=== PATIENT | female | born 1980 | race Caucasian/White ===

== ENCOUNTER 2016-10-06 17:14 | Inpatient (IN) | payer BC ==
[2016-10-06 18:12] LABS: ROM Internal QC QC Line Present
[2016-10-06] MEDS ORDERED: ceFOXitin 2 GM IVPREMIX* 2 GM/50 ML BAG IVPB ONE (18:57)
[2016-10-06] MEDS ORDERED: Sodium Citrate/Citric Acid* 15 ML UDC PO ONE (18:57)
[2016-10-06 19:38] LABS: Hematocrit 36 % (35-47); Hemoglobin 12.4 g/dl (12.0-16.0); Mean Corpuscular HGB Conc 34 g/dl (31-36); Mean Corpuscular Hemoglobin 29 pg (27-31); Mean Corpuscular Volume 84 fL (80-97); Mean Platelet Volume 8 um3 (7.4-10.4); Red Blood Count 4.32 10^6/ul (4.0-5.4); Red Cell Distribution Width 13 % (10.5-15)
[2016-10-06] MEDS ORDERED: Morphine PF AMP (0.5MG/ML)* 5 MG/10 ML AMP ONE (19:42)
[2016-10-06] MEDS ORDERED: Ondansetron INJ* 2 MG/ML VIAL ONE (19:46)
[2016-10-06] MEDS ORDERED: Ketorolac INJ* 30 MG/ML 1 ML VIAL ONE (19:46)
[2016-10-06] MEDS ORDERED: OXYTOCIN* 10 UNITS/ML 1 ML VIAL ONE (19:46)
[2016-10-06] MEDS ORDERED: Phenylephrine IV* 40 MCG/ML 10 ML SYRINGE ONE (20:43)
[2016-10-06] MEDS ORDERED: HYDROmorphone* 1 MG/ML 1 ML SYR IV PRN (21:21)
[2016-10-06] MEDS ORDERED: DiMENhydriNATE IV* 50 MG/ML VIAL IV PUSH PRN (21:21)
[2016-10-06] MEDS ORDERED: Acetaminophen IV 1GM/100ML * 100 ML IVPB ONE (21:21)
[2016-10-06] MEDS: oxyCODONE/Acetamin 5/325 MG* TAB PO PRN ×2 (22:02→22:25)
[2016-10-07] MEDS: Ibuprofen TAB* 600 MG PO SCH ×4 (00:13→17:15)
[2016-10-07] MEDS: oxyCODONE/Acetamin 5/325 MG* TAB PO PRN ×7 (02:33→23:29)
[2016-10-07] MEDS ORDERED: Dibucaine 1% 28.35 GM TUBE PR PRN (02:46)
[2016-10-07] MEDS ORDERED: Glycerin ADULT SUPP PR PRN (02:46)
[2016-10-07] MEDS ORDERED: Witch Hazel PAD* JAR TOPICAL PRN (02:46)
[2016-10-07] MEDS ORDERED: Acetaminophen TAB* 325 MG PO PRN (02:46)
[2016-10-07] MEDS ORDERED: Oxytocin in LR* 20 UNITS/1,000 ML BAG IVPB SCH (03:00)
[2016-10-07] MEDS ORDERED: RHO D Immune Globulin (HUMAN)* 300 MCG = 1,500 I.U. INJ IM ONE (09:59)
[2016-10-07] MEDS: Docusate CAP* 100 MG PO SCH ×3 (10:03→21:09)
[2016-10-07] MEDS: Simethicone CHEW TAB* 80 MG PO SCH ×4 (10:03→21:09)
--- NOTE | 2016-10-07 18:01 | OP ---
DATE OF OPERATION: 10/06/16 - ROOM #[id number] DATE OF : 82 SURGEON: Francine Moreno MD ASSISTANTS: Dr. Yu; Elicia Tamayo CNM ANESTHESIOLOGIST: Dr. Mclain. ANESTHESIA: Spinal. PRE-OP DIAGNOSES: Full-term intrauterine , breech presentation, spontaneous rupture of membranes, labor. POST-OP DIAGNOSES: Full-term intrauterine , breech presentation, spontaneous rupture of membranes, labor. OPERATIVE PROCEDURE: Primary low flap transverse section via Pfannenstiel. Uterus closed in 2 layers. ESTIMATED BLOOD LOSS: 600 cc. URINE OUTPUT: 400 cc clear urine. FINDINGS: Viable female infant in the pamela breech presentation. Clear amniotic fluid. Normal-appearing uterus. Normal-appearing ovaries and fallopian tubes. Apgars were 9 and 9. COMPLICATIONS: None. COUNTS: Sponge, lap, and needle count were correct x2. CONDITION: The patient was brought to recovery room awake and in stable condition. DESCRIPTION OF PROCEDURE: The patient was brought to the operating room. When spinal anesthesia was found to be adequate, a Horan catheter was placed under sterile condition. The patient was prepped and draped in the usual sterile fashion in the dorsal supine position with a leftward tilt. Time-out was performed. The spinal was tested with the Allis clamps and found to be adequate. A Pfannenstiel skin incision was made approximately 2 cm above the symphysis pubis. This was carried down to the underlying layer of fascia. The fascia was incised in the midline and the fascial incision was extended laterally with the Muller scissors. The fascia was grasped with Gracie clamps and the rectus muscle was dissected using sharp and blunt dissection. The rectus muscle was found to be in the midline. The peritoneum was identified, tented up, and entered bluntly. The peritoneal incision was extended bluntly. The bladder blade was inserted. The vesicouterine peritoneum was identified and a bladder flap was created. Bladder blade was re - inserted. A low flap transverse incision was made on the uterus to the level of the membranes. Minimal clear amniotic fluid was encountered. The was delivered atraumatically from the pamela breech presentation. The cord was milked. The cord was clamped and cut and the was handed off to the waiting chiropractor assistant, Dr. Arcos. Apgars were 9 and 9. The placenta was delivered. The uterus was exteriorized. The uterus was cleared of all clots and debris and the uterine incision was repaired using 0 Vicryl in a running locked fashion. A second layer of the same suture was used to imbricate and obtain excellent hemostasis. The ovaries were examined and found to be normal. The abdomen and pelvis were copiously irrigated with warm normal saline. The uterine incision was again examined and found to be hemostatic. The uterus was returned to the pelvis. Once again, the uterine incision was examined and found to be hemostatic. At this point, Dr. Yu left the OR and Elicia Tamayo came in and scrubbed to complete the closure. The peritoneum was identified and closed with 3-0 Polysorb. The subfascial layer was examined and found to be hemostatic. The fascia was closed using 0 Vicryl. The subcutaneous tissue was irrigated, any small bleeders were cauterized with the Bovie, and the skin was closed with 4-0 Monocryl in a subcuticular fashion. Steri-Strips were applied, a pressure dressing was applied, and the patient was brought to the recovery room awake and in stable condition. [id number]/[facility] #: [id number] [facility] HOSPITALBasilia
[2016-10-07] MEDS ORDERED: diPHENhydraMINE PO* 25 MG PO ONE (21:00)
[2016-10-07] MEDS: Ibuprofen TAB* 600 MG PO PRN (23:30)
[2016-10-08] MEDS: oxyCODONE/Acetamin 5/325 MG* TAB PO PRN ×4 (03:05→21:01)
[2016-10-08] MEDS: Ibuprofen TAB* 600 MG PO PRN ×2 (05:19→17:56)
[2016-10-08 07:24] LABS: Hematocrit 35 % (35-47); Hemoglobin 11.4 g/dl (12.0-16.0); Mean Corpuscular HGB Conc 33 g/dl (31-36); Mean Corpuscular Hemoglobin 28 pg (27-31); Mean Corpuscular Volume 86 fL (80-97); Mean Platelet Volume 8 um3 (7.4-10.4); Red Blood Count 4.03 10^6/ul (4.0-5.4); Red Cell Distribution Width 13 % (10.5-15); White Blood Count 10.4 10^3/ul (3.5-10.8)
[2016-10-08] MEDS: Simethicone CHEW TAB* 80 MG PO SCH ×4 (08:54→21:01)
[2016-10-08] MEDS: Docusate CAP* 100 MG PO SCH ×3 (08:54→21:01)
[2016-10-08] MEDS ORDERED: Ferrous Gluconate TAB* 324 MG TAB PO SCH (09:00)
[2016-10-09] MEDS: Ibuprofen TAB* 600 MG PO PRN ×2 (00:25→06:45)
[2016-10-09] MEDS: oxyCODONE/Acetamin 5/325 MG* TAB PO PRN ×3 (02:27→10:28)
[2016-10-09] MEDS: Simethicone CHEW TAB* 80 MG PO SCH (07:58)
[2016-10-09] MEDS: Docusate CAP* 100 MG PO SCH (07:58)
[2016-10-09 08:08] VITALS: BP 109/72
== END 2016-10-09 10:40 | disposition home or self-care (01) | DRG 540 ==
LOC: MCHOBOUT 17:14 → MCHOB 18:25
PROVIDERS: ADMIT Obstetrics & Gynecology; ATTEND Obstetrics & Gynecology
PROC: 4A1HXCZ Monitoring of Products of Conception, Cardiac Rate, External Approach (ICD-10-PCS; 2016-10-06)
PROC: 10D00Z1 Extraction of Products of Conception, Low, Open Approach (ICD-10-PCS; principal; 2016-10-06 20:04)
DX: O32.1XX0 Maternal care for breech presentation, not applicable or unspecified (principal); O09.523 Supervision of elderly multigravida, third trimester; Z3A.39 39 weeks gestation of pregnancy; Z37.0 Single live birth; Z91.013 Allergy to seafood; Z91.018 Allergy to other foods
CPT/HCPCS: 36415; 84112; 85025; 85461; 86850; 86870; 86880; 86900; 86901; A9270-GY; J0694; J1885; J2405; J2590; J2790